=== PATIENT | female | born 1950 | race Native Hawaiian/Other Pacific Islander ===

== ENCOUNTER 2016-05-19 17:19 | Outpatient (CLI) | payer OTHER ==
[~2016-05-19 17:19] MED LIST: HYDR25TA60 PO; LISI20TA11 PO
== END 2016-05-19 18:19 | disposition home or self-care (01) ==
LOC: RAD 17:19
DX: M79.605 Pain in left leg (principal)

== ENCOUNTER 2017-08-10 08:57 | Outpatient (CLI) | payer OTHER | END 2017-08-10 21:26 | disposition home or self-care (01) | LOC: MAMMO 08:57 | DX: Z12.31 Encounter for screening mammogram for malignant neoplasm of breast (principal) ==

== ENCOUNTER 2018-01-30 17:34 | Observation (INO) | payer OTHER ==
[~2018-01-30] VITALS: Ht 157.5 cm; Wt 69.1 kg
[2018-01-30 18:52] VITALS: BP 187/79; TEMP 97.7; Ht 157.5 cm; Wt 69.1 kg
[2018-01-30] MEDS ORDERED: METF500T PO (18:59)
[2018-01-30 19:33] LABS: PLATELET COUNT 341 K/uL (152-353)
[2018-01-30 20:00] VITALS: BP 187/76; TEMP 98.6
[2018-01-30 20:47] LABS: POTASSIUM 3.5 mmol/L (3.6-5.2)
[2018-01-31] VITALS (8 sets, daily range): BP systolic 110–141; BP diastolic 55–72; TEMP 97.4–98.7
[2018-01-31 06:58] LABS: POTASSIUM 3.7 mmol/L (3.6-5.2)
[2018-01-31 07:03] LABS: PLATELET COUNT 210 K/uL (152-353)
[2018-02-01] VITALS: BP 127/63; TEMP 98.7
[2018-02-01 04:15] VITALS: BP 129/65; TEMP 97.3
[2018-02-01 04:38] LABS: PLATELET COUNT 229 K/uL (152-353)
[2018-02-01 05:10] LABS: POTASSIUM 3.4 mmol/L (3.6-5.2)
[2018-02-01 08:04] VITALS: BP 117/59; TEMP 98
[2018-02-01 12:10] VITALS: BP 134/67; TEMP 98.4
== END 2018-02-01 15:20 | disposition home or self-care (01) ==
LOC: MED/SURG 17:34
PROVIDERS: ADMIT Family Medicine
DX: J20.8 Acute bronchitis due to other specified organisms (principal); J18.8 Other pneumonia, unspecified organism; K21.9 Gastro-esophageal reflux disease without esophagitis; E11.9 Type 2 diabetes mellitus without complications; I10 Essential (primary) hypertension; R07.89 Other chest pain; J44.1 Chronic obstructive pulmonary disease with (acute) exacerbation; R06.2 Wheezing
CPT/HCPCS: 36415; 80053; 82550; 82948; 83036; 83735; 83880; 84100; 84443; 84484; 85027; 87040; 87070; 87205; 93005; 94640; 94664; 94668; 94760; 96365; 96366; 96367; 96374; 96375; 99220; G0378; G0379; J0456; J0696; J1815; J2930

== ENCOUNTER 2018-06-16 13:45 | Outpatient (CLI) | payer OTHER ==
[~2018-06-16] VITALS: Ht 157.5 cm; Wt 68.0 kg
[~2018-06-16 13:45] MED LIST changes: +METF500T PO
[2018-06-16 13:55] VITALS: BP 101/50; TEMP 98.5
[2018-06-16 16:10] VITALS: BP 125/65; TEMP 98.7
== END 2018-06-16 16:18 | disposition home or self-care (01) ==
LOC: INF 13:45
DX: E86.0 Dehydration (principal)
CPT/HCPCS: 96360; 96361

== ENCOUNTER 2018-06-20 12:47 | Outpatient (CLI) | payer OTHER | END 2018-06-20 22:53 | disposition home or self-care (01) | LOC: LAB 12:47 | DX: R80.9 Proteinuria, unspecified (principal) | CPT/HCPCS: 84156 ==

== ENCOUNTER 2018-07-13 08:03 | Outpatient (CLI) | payer OTHER | END 2018-07-13 21:36 | disposition home or self-care (01) | LOC: RESP 08:03 | DX: R06.02 Shortness of breath (principal) ==

== ENCOUNTER 2019-05-04 15:12 | Outpatient (CLI) | payer OTHER | END 2019-05-04 19:41 | disposition home or self-care (01) | LOC: LAB 15:12 | DX: R07.89 Other chest pain (principal) | CPT/HCPCS: 84484 ==

== ENCOUNTER 2019-10-08 11:37 | Outpatient (CLI) | payer OTHER | END 2019-10-08 21:49 | disposition home or self-care (01) | LOC: RAD 11:37 | DX: R05 Cough (principal) ==

== ENCOUNTER 2020-11-20 15:48 | Observation (INO) | payer OTHER ==
[~2020-11-20] VITALS: Ht 157.5 cm; Wt 73.0 kg
[2020-11-20 17:27] VITALS: BP 191/77; TEMP 97.6; Ht 157.5 cm; Wt 73.0 kg
[2020-11-20 17:54] LABS: PLATELET COUNT 211 K/uL (152-353)
[2020-11-20 18:07] LABS: PARTIAL THROMBOPLASTIN TIME 25.4 SECONDS (24.5-33.6)
[2020-11-20] MEDS ORDERED: ROSU10TA PO (18:07)
[2020-11-20] MEDS ORDERED: LEVO0.0218 PO (18:07)
[2020-11-20 18:36] LABS: POTASSIUM 3.8 mmol/L (3.6-5.2); SODIUM 139 mmol/L (136-145)
[2020-11-20 20:00] VITALS: BP 145/67; TEMP 97.6
[2020-11-21] VITALS: BP 137/65; TEMP 98.5
[2020-11-21 04:00] VITALS: BP 122/58; TEMP 97.8
[2020-11-21 08:00] VITALS: BP 120/54; TEMP 97.8
[2020-11-21 09:20] LABS: POTASSIUM 4.4 mmol/L (3.6-5.2)
[2020-11-21 09:33] LABS: PLATELET COUNT 188 K/uL (152-353)
[2020-11-21 12:00] VITALS: BP 141/64; TEMP 98.1
== END 2020-11-21 16:08 | disposition home or self-care (01) ==
LOC: MED/SURG 15:48
PROVIDERS: ADMIT Family Medicine; ATTEND Family Medicine
DX: I20.8 Other forms of angina pectoris (principal); I10 Essential (primary) hypertension; J44.9 Chronic obstructive pulmonary disease, unspecified; E11.9 Type 2 diabetes mellitus without complications
CPT/HCPCS: 36415; 80053; 82150; 82550; 82728; 82948; 83690; 83735; 84100; 84484; 85027; 85379; 85610; 85730; 86140; 87635; 93005; 96372; 99220; G0378; G0379; J1885; J2930; U0003

== ENCOUNTER 2021-01-28 12:59 | Outpatient (CLI) | payer OTHER ==
[~2021-01-28 12:59] MED LIST changes: +LEVO0.0218 PO; +ROSU10TA PO
== END 2021-01-28 19:19 | disposition home or self-care (01) ==
LOC: RESP 12:59
PROVIDERS: ATTEND Nurse Practitioner Family
DX: J42 Unspecified chronic bronchitis (principal); Z79.899 Other long term (current) drug therapy

== ENCOUNTER 2021-09-14 08:56 | Outpatient (CLI) | payer OTHER | END 2021-09-14 18:58 | disposition home or self-care (01) | LOC: US 08:56 | PROVIDERS: ATTEND Nurse Practitioner Family | DX: R94.5 Abnormal results of liver function studies (principal) ==

== ENCOUNTER 2022-01-20 10:00 | Outpatient (CLI) | payer OTHER | END 2022-01-20 21:18 | disposition home or self-care (01) | LOC: RAD 10:00 | PROVIDERS: ATTEND Nurse Practitioner Family | DX: J42 Unspecified chronic bronchitis (principal) ==

== ENCOUNTER 2022-05-07 23:45 | Emergency (ER) | payer OTHER ==
[~2022-05-07] VITALS: Ht 157.5 cm; Wt 73.0 kg
[2022-05-07 23:45] VITALS: BP 191/75; TEMP 98
[2022-05-08 01:14] LABS: PLATELET COUNT 203 K/uL (152-353)
[2022-05-08 01:23] LABS: POTASSIUM 3.8 mmol/L (3.6-5.2)
== END 2022-05-08 03:33 | disposition home or self-care (01) ==
LOC: ED 23:45
PROVIDERS: Family Medicine
DX: U07.1 COVID-19 (principal); J01.80 Other acute sinusitis; J40 Bronchitis, not specified as acute or chronic
CPT/HCPCS: 36415; 80053; 81002; 85027; 87502; 96361; 96365; 96375; 99284; J0696; J2930

== ENCOUNTER 2022-09-23 08:24 | Outpatient (CLI) | payer OTHER | END 2022-09-23 18:59 | disposition home or self-care (01) | LOC: MAMMO 08:24 | PROVIDERS: ATTEND Family Medicine | DX: Z12.31 Encounter for screening mammogram for malignant neoplasm of breast (principal) ==